=== PATIENT | male | born 1990 ===

== ENCOUNTER → 2021-03-13 15:00 | Outpatient (CLI) | payer OTHER | END | disposition home or self-care (01) | LOC: PPH VACUNA 15:00 | DX: Z23 Encounter for immunization (principal) ==

== ENCOUNTER 2021-04-03 08:00 | Outpatient (CLI) | payer OTHER | END 2021-04-03 08:30 | disposition home or self-care (01) | LOC: PPH VACUNA 08:00 | DX: Z23 Encounter for immunization (principal) ==

== ENCOUNTER 2021-11-04 12:55 | Outpatient (CLI) | payer OTHER | END 2021-11-04 13:15 | disposition home or self-care (01) | LOC: PPH VACUNA 12:55 | PROVIDERS: ATTEND Emergency Medicine Pediatric Emergency Medicine | DX: Z23 Encounter for immunization (principal) ==